=== PATIENT | female | born 1955 | race Caucasian/White ===

== ENCOUNTER → 2022-07-07 | Outpatient (CLI) | payer OTHER | LOC: M RAD 11:59 | PROVIDERS: ATTEND Family Medicine | DX: R91.1 Solitary pulmonary nodule (principal); J44.9 Chronic obstructive pulmonary disease, unspecified ==

== ENCOUNTER → 2024-01-29 | Outpatient (CLI) | payer OTHER | LOC: M PLARAD 15:17 | PROVIDERS: ATTEND Family Medicine | DX: R91.1 Solitary pulmonary nodule (principal) | CPT/HCPCS: 78815; A9552 ==

== ENCOUNTER → 2024-03-07 | Outpatient (CLI) | payer OTHER ==
[~2024-03-07] MED LIST: ASPI81TA26 PO; ATOR1TAB21; CARV25TA; CETI10CA13 PO; CVS10CAP7 PO; FURO20TA2; HYDR-643; LISI20TA35; METF500T13; MULT1TAB16 PO; PROHANCE 279.3MG/ML 15ML VIAL As Ordered ONE; PROHANCE 279.3MG/ML 5ML VIAL As Ordered ONE
== END ==
LOC: M RAD 07:52
PROVIDERS: ATTEND Internal Medicine Medical Oncology
DX: K86.2 Cyst of pancreas (principal)
CPT/HCPCS: 74183; A9576